=== PATIENT | female | born 1940 | race Caucasian/White ===

== ENCOUNTER → 2016-11-27 | Day surgery (SDC) | payer MEDICARE, BC ==
[~2016-11-27] MED LIST: Brimonidine 0.2% Ophth Soln 5 ML Bottle EYERT SCH; Phenylephrine 2.5% Ophth Soln 2 ML Bot EYERT SCH
[2016-11-27 10:08] VITALS: BP 133/60
== END ==
LOC: JD.SDS 08:39
PROVIDERS: ATTEND Ophthalmology
PROC: 085J3ZZ Destruction of Right Lens, Percutaneous Approach (ICD-10-PCS; principal; 2016-11-27)
DX: H26.491 Other secondary cataract, right eye (principal); H35.373 Puckering of macula, bilateral; H35.343 Macular cyst, hole, or pseudohole, bilateral; H40.002 Preglaucoma, unspecified, left eye; I10 Essential (primary) hypertension; E78.00 Pure hypercholesterolemia, unspecified; Z79.82 Long term (current) use of aspirin; Z79.899 Other long term (current) drug therapy; Z96.651 Presence of right artificial knee joint; Z98.41 Cataract extraction status, right eye; Z98.42 Cataract extraction status, left eye; Z96.1 Presence of intraocular lens; Z98.890 Other specified postprocedural states

== ENCOUNTER 2020-04-07 18:16 | Emergency (ER) | payer MEDICARE, BC ==
[2020-04-07 18:27] VITALS: BP 154/77; PULSE 79
[2020-04-07] MEDS ORDERED: Sodium Chloride 0.9% 10 ML Syringe FLUSH PRN (18:47)
--- NOTE | 2020-04-07 18:56 | EDM.PDOC ---
ED HPI GENERAL MEDICAL PROBLEM - General Chief Complaint: Chest Pain Stated Complaint: CHEST PAINS AND HIGH BLOOD PRE Time Seen by Provider: 04/07/20 18:38 Source of Information: Reports: Patient, RN Notes Reviewed History Limitations: Reports: No Limitations - History of Present Illness INITIAL COMMENTS - FREE TEXT/NARRATIVE: Patient is a 80-year-old female who presents to the ED for the evaluation of her chest discomfort. Patient notes that around 5 PM today, she developed some pressure to the center of her chest, notes that her blood pressure at that time was 156/101. She does state that she had her first COVID-19 immunization yesterday and was feeling fine up until 5 PM. She is not having any cough or shortness of breath, but states she feels slightly anxious. She does note that she has had a stent placed several years ago, but has no issues since then. She does note that cardiac issues do run in her family so she became a little bit concerned with the chest pressure. She has no fever/chills, cough/shortness of breath, nausea/vomiting/diarrhea. Primary care provider is Dr. Hartman. Middle Chest Pain Score (Numeric/FACES): 4 - Related Data Allergies Allergy/AdvReac Type Severity Reaction Status Date / Time Sulfa (Sulfonamide Allergy Rash Verified 04/07/20 18:28 Antibiotics) amoxicillin trihydrate AdvReac Nausea and Verified 04/07/20 18:28 [From Augmentin] Vomiting potassium clavulanate AdvReac Nausea and Verified 04/07/20 18:28 [From Augmentin] Vomiting Home Meds: Home Meds Cholecalciferol (Vitamin D3) [Vitamin D3] 5,000 unit PO DAILY 01/14/14 [History] OXcarbazepine [Oxcarbazepine] 150 mg PO QAM 01/14/14 [History] Simvastatin [Zocor] 20 mg PO BEDTIME 01/14/14 [History] Calcium Carbonate/Vitamin D3 [Calcium 600 + Vit D 400] 2 each PO DAILY 01/15/14 [History] Isosorbide Mononitrate [Imdur] 30 mg PO DAILY 02/06/14 [History] Nitroglycerin 0.4 mg SL ASDIRECTED 02/06/14 [History] Acetaminophen [Pharbetol] 650 mg PO Q4H PRN 04/07/20 [History] Aspirin [Adult Low Dose Aspirin EC] 81 mg PO DAILY 04/07/20 [History] LORazepam [Ativan] 0.5 mg PO DAILY PRN 04/07/20 [History] [place]-3 Fatty Acids [Maxepa] 1,000 mg PO DAILY 04/07/20 [History] Omeprazole 20 mg PO DAILY 04/07/20 [History] Timolol Hemihydrate [Betimol 0.5% Ophth Soln] 1 drop EYEBOTH BEDTIME 04/07/20 [History] Past Medical History HEENT History: Reports: Impaired Vision Cardiovascular History: Reports: CAD, High Cholesterol, Hypertension Gastrointestinal History: Reports: GERD Genitourinary History: Reports: Urinary Incontinence Other [employer] History: post menopausal atropic vaginitis, breast mass R Musculoskeletal History: Reports: Osteoarthritis Neurological History: Reports: Seizure Other Neuro History: transient cerebral edema Psychiatric History: Reports: Anxiety Dermatologic History: Reports: Cellulitis - Past Surgical History HEENT Surgical History: Reports: Cataract Surgery, Detached Retina, Oral Surgery Other HEENT Surgeries/Procedures: bilateral eye surgery, wears glasses, has partial Cardiovascular Surgical History: Reports: Coronary Artery Stent GI Surgical History: Reports: Cholecystectomy Musculoskeletal Surgical History: Reports: Knee Replacement Social & Family History - Tobacco Use Tobacco Use Status *Q: Never Tobacco User Second Hand Smoke Exposure: No - Caffeine Use Caffeine Use: Reports: None - Recreational Drug Use Recreational Drug Use: No - Living Situation & Occupation Living situation: Reports: , with Spouse Occupation: Retired ED ROS GENERAL - Review of Systems Review Of Systems: Comprehensive ROS is negative, except as noted in HPI. ED EXAM, GENERAL - Physical Exam Exam: See Below Exam Limited By: No Limitations General Appearance: Alert, WD/WN, No Apparent Distress Respiratory/Chest: No Respiratory Distress, Lungs Clear, Normal Breath Sounds, No Accessory Muscle Use, Chest Non-Tender Cardiovascular: Normal Peripheral Pulses, Regular Rate, Rhythm, No Edema, No Murmur Peripheral Pulses: 2+: Radial (L), Radial (R) GI/Abdominal: Normal Bowel Sounds, Soft, Non-Tender, No Distention, No Mass Extremities: Normal Inspection, Normal Capillary Refill Neurological: Alert, Oriented, CN II-XII Intact, Normal Cognition, No Motor/Sensory Deficits Psychiatric: Normal Affect, Normal Mood Skin Exam: Warm, Dry, Intact, Normal Color, No Rash #1 Interpretation EKG Date: 04/07/20 Time: 18:26 Rhythm: NSR Rate (Beats/Min): 78 [place]: Normal P-Wave: Present QRS: Normal ST-T: Normal QT: Normal Comparison: NA - No Prior EKG EKG Interpretation Comments: No obvious ischemia or acute ST changes noted, reviewed by myself and Dr. Portillo. Course - Vital Signs Last Recorded V/S: Last Vital Signs Temp 96.9 F 04/07/20 18:21 Pulse 79 04/07/20 18:21 Resp 16 04/07/20 18:21 BP 154/77 H 04/07/20 18:21 Pulse Ox 97 04/07/20 18:21 - Orders/Labs/Meds Orders: Active Orders 24 hr Category Date Time Status EKG 12 Lead [EKG Documentation Completion] [RC] STAT Care 04/07/20 18:19 Active Peripheral IV Care [RC] . DIRECTED Care 04/07/20 18:47 Ordered Chest 1V Frontal [CR] Stat Exams 04/07/20 18:47 Ordered Sodium Chloride 0.9% [Saline Flush] Med 04/07/20 18:47 Ordered 10 ml FLUSH ASDIRECTED PRN Peripheral IV Insertion Adult [OM.PC] Stat Oth 04/07/20 18:47 Ordered Medication Orders Sodium Chloride (Saline Flush) 10 ml FLUSH ASDIRECTED PRN PRN Reason: Keep Vein Open Last Admin: 04/07/20 19:02 Dose: 10 ml Documented by: CANDY Labs: Laboratory Tests 04/07/20 04/07/20 04/07/20 Range/Units 19:20 19:20 19:20 WBC 4.87 (3.98-10.04) K/mm3 RBC 3.91 L (3.98-5.22) M/mm3 Hgb 12.8 D (11.2-15.7) gm/dl Hct 39.5 (34.1-44.9) % MCV 101.0 H (79.4-94.8) fl MCH 32.7 H (25.6-32.2) pg MCHC 32.4 (32.2-35.5) g/dl RDW Std Deviation 43.4 (36.4-46.3) fL Plt Count 182 (182-369) K/mm3 MPV 10.4 (9.4-12.3) fl Neut % (Auto) 62.8 (34.0-71.1) % Lymph % (Auto) 23.4 (19.3-51.7) % [place] % (Auto) 10.9 (4.7-12.5) % Eos % (Auto) 2.3 (0.7-5.8) Baso % (Auto) 0.4 (0.1-1.2) % Neut # (Auto) 3.06 (1.56-6.13) K/mm3 Lymph # (Auto) 1.14 L (1.18-3.74) K/mm3 [place] # (Auto) 0.53 H (0.24-0.36) K/mm3 Eos # (Auto) 0.11 (0.04-0.36) K/mm3 Baso # (Auto) 0.02 (0.01-0.08) K/mm3 PT 10.5 (9.7-12.0) SECONDS INR 0.98 APTT 24.8 (21.7-31.4) SECONDS Sodium 141 (136-145) mEq/L Potassium 4.1 (3.5-5.1) mEq/L Chloride 105 (98-107) mEq/L Carbon Dioxide 24 (21-32) mEq/L Anion Gap 16.1 H (5-15) BUN 24 H (7-18) mg/dL Creatinine 1.4 H (0.55-1.02) mg/dL Est Cr Clr Drug Dosing 24.99 mL/min Estimated GFR (MDRD) 36 (>60) mL/min BUN/Creatinine Ratio 17.1 (14-18) Glucose 111 (83-115) mg/dL Calcium 9.4 (8.5-10.1) mg/dL Magnesium 2.1 (1.8-2.4) mg/dl Total Bilirubin 0.4 (0.2-1.0) mg/dL AST 25 (15-37) U/L ALT 35 (14-59) U/L Alkaline Phosphatase 104 (46-116) U/L Troponin I < 0.017 (0.00-0.056) ng/mL NT-Pro-B Natriuret Pep (0-450) pg/mL Total Protein 7.1 (6.4-8.2) g/dl Albumin 3.9 (3.4-5.0) g/dl Globulin 3.2 gm/dL Albumin/Globulin Ratio 1.2 (1-2) 04/07/20 Range/Units 19:20 WBC (3.98-10.04) K/mm3 RBC (3.98-5.22) M/mm3 Hgb (11.2-15.7) gm/dl Hct (34.1-44.9) % MCV (79.4-94.8) fl MCH (25.6-32.2) pg MCHC (32.2-35.5) g/dl RDW Std Deviation (36.4-46.3) fL Plt Count (182-369) K/mm3 MPV (9.4-12.3) fl Neut % (Auto) (34.0-71.1) % Lymph % (Auto) (19.3-51.7) % [place] % (Auto) (4.7-12.5) % Eos % (Auto) (0.7-5.8) Baso % (Auto) (0.1-1.2) % Neut # (Auto) (1.56-6.13) K/mm3 Lymph # (Auto) (1.18-3.74) K/mm3 [place] # (Auto) (0.24-0.36) K/mm3 Eos # (Auto) (0.04-0.36) K/mm3 Baso # (Auto) (0.01-0.08) K/mm3 PT (9.7-12.0) SECONDS INR APTT (21.7-31.4) SECONDS Sodium (136-145) mEq/L Potassium (3.5-5.1) mEq/L Chloride (98-107) mEq/L Carbon Dioxide (21-32) mEq/L Anion Gap (5-15) BUN (7-18) mg/dL Creatinine (0.55-1.02) mg/dL Est Cr Clr Drug Dosing mL/min Estimated GFR (MDRD) (>60) mL/min BUN/Creatinine Ratio (14-18) Glucose (83-115) mg/dL Calcium (8.5-10.1) mg/dL Magnesium (1.8-2.4) mg/dl Total Bilirubin (0.2-1.0) mg/dL AST (15-37) U/L ALT (14-59) U/L Alkaline Phosphatase (46-116) U/L Troponin I (0.00-0.056) ng/mL NT-Pro-B Natriuret Pep 72 (0-450) pg/mL Total Protein (6.4-8.2) g/dl Albumin (3.4-5.0) g/dl Globulin gm/dL Albumin/Globulin Ratio (1-2) Meds: Medications Generic Name Dose Route Start Last Admin Trade Name Freq PRN Reason Stop Dose Admin Sodium Chloride 10 ml 04/07/20 18:47 04/07/20 19:02 Saline Flush FLUSH 10 ml ASDIRECTED PRN Administration Keep Vein Open - Re-Assessments/Exams Free Text/Narrative Re-Assessment/Exam: 04/07/20 18:55 Patient presents to the ED for the evaluation of her central chest discomfort. Although this very well could be a reaction of her Covid vaccine we will get EKG and basic labs to rule out cardiac etiology in nature. Patient is amenable to this plan. EKG shows no acute ST abnormalities. Dr. Portillo does appreciate some T wave inversion in aVL, and T wave flattening in V2. Consider left atrial hypertrophy. 04/07/20 20:33 Patient has some slight dehydration otherwise labs are fairly unremarkable, troponin is undetectably low. I did discuss the findings with the patient, and however this likely could be due to a vaccine reaction, she is not suffering from a heart attack at today's visit. Patient was somewhat reassured with this and will follow up with her regular care provider sometime this week. Departure - Departure Time of Disposition: 20:34 Disposition: Home, Self-Care 01 Condition: Good Clinical Impression: Adverse effect of COVID-19 vaccine, Atypical chest pain Instructions: Nonspecific Chest Pain, Adult, [id number] Referrals: Cecilia Nguyen MD [Primary Care Provider] - Forms: ED Department Discharge Additional Instructions: You were evaluated in the ER today for your chest discomfort. EKG and laboratory evaluation taken at today's visit demonstrate no focal abnormalities, you are not suffering from a heart attack at today's visit. It is likely, that this could be an adverse effect of the Covid vaccine that you received 1 day prior. I would recommend that you check your blood pressure twice daily, in a calm restful state, and record these numbers and discuss them with your primary care provider for further management. Please return to the ER at any time if symptoms change or worsen. Sepsis Event Note (ED) - Evaluation Sepsis Screening Result: No Definite Risk - Focused Exam Vital Signs: Vital Signs Temp Pulse Resp BP Pulse Ox 04/07/20 18:21 96.9 F 79 16 154/77 H 97 - My Orders Last 24 Hours: My Active Orders 04/07/20 18:19 EKG 12 Lead [EKG Documentation Completion] [RC] STAT 04/07/20 18:47 Peripheral IV Care [RC] . DIRECTED Chest 1V Frontal [CR] Stat Sodium Chloride 0.9% [Saline Flush] 10 ml FLUSH ASDIRECTED PRN Peripheral IV Insertion Adult [OM.PC] Stat - Assessment/Plan Last 24 Hours: My Active Orders 04/07/20 18:19 EKG 12 Lead [EKG Documentation Completion] [RC] STAT 04/07/20 18:47 Peripheral IV Care [RC] . DIRECTED Chest 1V Frontal [CR] Stat Sodium Chloride 0.9% [Saline Flush] 10 ml FLUSH ASDIRECTED PRN Peripheral IV Insertion Adult [OM.PC] Stat
--- NOTE | 2020-04-08 12:47 | CR ---
Chest: Portable view of the chest was obtained. Comparison: Previous chest x-ray of 09/10/18. Heart is felt to be slightly enlarged. Tortuous thoracic aorta is noted. Lungs are clear with no acute parenchymal change. Bony structures are grossly intact. Impression: 1. Heart mildly enlarged. Nothing acute is appreciated on portable chest x-ray. Diagnostic code #2
== END 2020-04-07 20:50 | disposition home or self-care (01) ==
LOC: JD.ED 18:16
DX: R07.89 Other chest pain (principal); T88.1XXA Other complications following immunization, not elsewhere classified, initial encounter; I10 Essential (primary) hypertension; E78.00 Pure hypercholesterolemia, unspecified; I25.10 Atherosclerotic heart disease of native coronary artery without angina pectoris; K21.9 Gastro-esophageal reflux disease without esophagitis; Z88.2 Allergy status to sulfonamides; Z88.1 Allergy status to other antibiotic agents; Z79.82 Long term (current) use of aspirin; Z79.899 Other long term (current) drug therapy
CPT/HCPCS: 36415; 71045; 71045-26; 80053; 83735; 83880; 84484; 85025; 85610; 85730; 93005; 93010; 99284; 99285-25

== ENCOUNTER 2021-05-22 08:31 | Emergency (ER) | payer MEDICARE, BC ==
[2021-05-22 08:45] VITALS: BP 138/81; PULSE 78
[2021-05-22] MEDS ORDERED: Sodium Chloride 0.9% 10 ML Syringe FLUSH PRN (09:01)
[2021-05-22] MEDS ORDERED: Dicyclomine 10 MG Cap PO ONE (09:24)
[2021-05-22] MEDS ORDERED: Metoclopramide 10 MG/2 ML SDV IVPUSH ONE (09:25)
[2021-05-22] MEDS ORDERED: HYDROmorphone 0.5 MG/0.5 ML Syringe IVPUSH ONE (09:25)
== END 2021-05-22 15:00 | disposition home or self-care (01) ==
LOC: JD.ED 08:31
DX: N39.0 Urinary tract infection, site not specified (principal); K21.9 Gastro-esophageal reflux disease without esophagitis; Z88.2 Allergy status to sulfonamides; Z88.0 Allergy status to penicillin; Z79.82 Long term (current) use of aspirin; Z79.899 Other long term (current) drug therapy
CPT/HCPCS: 36415; 71045; 80053; 81001; 83690; 83735; 84484; 85025; 85379; 85610; 86140; 87086; 87088; 87186; 93005; 96374; 96375; 99285; A9270; J1170; J2765; 93010; J3490

== ENCOUNTER 2022-08-21 18:54 | Emergency (ER) | payer MEDICARE, BC ==
[2022-08-21 20:32] LABS: BASOPHILS ABSOLUTE AUTO 0.02 K/mm3 (0.01-0.08); BASOPHILS PERCENT AUTO 0.4 % (0.1-1.2); EOSINOPHILS ABSOLUTE AUTO 0.17 K/mm3 (0.04-0.36); EOSINOPHILS PERCENT AUTO 3.2 (0.7-5.8); HEMATOCRIT 38.6 % (34.1-44.9); HEMOGLOBIN 12.7 gm/dl (11.2-15.7); LYMPHOCYTES ABSOLUTE AUTO 1.24 K/mm3 (1.18-3.74); LYMPHOCYTES PERCENT AUTO 23.4 % (19.3-51.7); MEAN CORPUSCULAR HGB CONC 32.9 g/dl (32.2-35.5); MEAN CORPUSCULAR VOLUME 100.3 fl (79.4-94.8); MEAN PLATELET VOLUME 10.3 fl (9.4-12.3); MONOCYTES ABSOLUTE AUTO 0.55 K/mm3 (0.24-0.36); MONOCYTES PERCENT AUTO 10.4 % (4.7-12.5); NEUTROPHILS ABSOLUTE AUTO 3.33 K/mm3 (1.56-6.13); NEUTROPHILS PERCENT AUTO 62.6 % (34.0-71.1); PLATELET COUNT,PLT 182 K/mm3 (182-369); RED BLOOD CELL COUNT 3.85 M/mm3 (3.98-5.22); WHITE BLOOD CELL COUNT,WBC 5.31 K/mm3 (3.98-10.04)
[2022-08-21 21:22] LABS: A/G RATIO 1.2 (1-2); ALBUMIN 3.7 g/dl (3.4-5.0); ANION GAP 15.2 (5-15); BILIRUBIN TOTAL 0.4 mg/dL (0.2-1.0); BUN/CREATININE RATIO 18.3 (14-18); CALCIUM 8.9 mg/dL (8.5-10.1); CREATININE 1.2 mg/dL (0.55-1.02); EST CRCL DRUG DOSING (CG) 28.21 mL/min; MAGNESIUM 1.9 mg/dL (1.8-2.4); POTASSIUM,K 4.2 mEq/L (3.5-5.1); PROTEIN TOTAL,TP 6.9 g/dl (6.4-8.2); TSH 1.314 uIU/mL (0.358-3.74)
[2022-08-21 21:24] LABS: APPEARANCE,URINE CLEAR (Clear); BILIRUBIN,URINE NEGATIVE (Negative); COLOR,URINE YELLOW (Yellow); GLUCOSE,URINE NEGATIVE (Negative); KETONES,URINE NEGATIVE (Negative); LEUKOCYTE ESTERASE,URINE 2+ (Negative); NITRITE,URINE POSITIVE (Negative); OCCULT BLOOD,URINE NEGATIVE (Negative); PROTEIN,URINE NEGATIVE (Negative); UROBILINOGEN,URINE 0.2 (0.2-1.0)
[2022-08-21 21:32] LABS: BARBITURATE SCREEN,URINE NEGATIVE (CUTOFF=200); BENZODIAZEPINES SCREEN,URINE NEGATIVE (CUTOFF=150); BUPRENORPHINE SCREEN,URINE NEGATIVE (CUTOFF=10); METHADONE SCREEN, URINE NEGATIVE (CUTOFF=200); METHAMPHETAMINES SCREEN, URINE NEGATIVE (CUTOFF=500); OXYCODONE SCREEN,URINE NEGATIVE (CUT0FF=100); PROPOXYPHENE SCREEN,URINE NEGATIVE (CUTOFF=300); THC SCREEN,URINE 20 NG/ML NEGATIVE (CUTOFF=50)
[2022-08-21 21:33] LABS: AMPHETAMINES SCREEN, URINE NEGATIVE (CUTOFF=500)
[2022-08-21 21:38] LABS: RBC,URINE 0-5 /hpf (0-5)
[2022-08-21 21:39] LABS: BACTERIA,URINE MANY /hpf (FEW); MUCUS,URINE NOT SEEN /hpf (FEW)
[2022-08-21] MEDS ORDERED: Cephalexin 500 MG Cap PO ONE (23:17)
[2022-08-21 23:58] VITALS: BP 143/72; PULSE 63
== END 2022-08-21 23:58 | disposition home or self-care (01) ==
LOC: JD.ED 18:54
DX: R42 Dizziness and giddiness (principal); N30.01 Acute cystitis with hematuria; I25.10 Atherosclerotic heart disease of native coronary artery without angina pectoris; E78.00 Pure hypercholesterolemia, unspecified; I10 Essential (primary) hypertension; K21.9 Gastro-esophageal reflux disease without esophagitis; M19.90 Unspecified osteoarthritis, unspecified site; Z79.899 Other long term (current) drug therapy; Z79.82 Long term (current) use of aspirin; Z88.0 Allergy status to penicillin; Z88.2 Allergy status to sulfonamides
CPT/HCPCS: 36415; 70450; 80053; 80306; 81001; 83735; 83970; 84443; 84484; 85025; 93005; 99284; A9270; 93010; 99283

== ENCOUNTER 2024-01-18 08:09 | Emergency (ER) | payer MEDICARE, BC ==
[2024-01-18] MEDS ORDERED: Sodium Chloride 0.9% 10 ML Syringe FLUSH PRN ×2 (09:33→09:39)
[2024-01-18 10:19] LABS: BASOPHILS PERCENT AUTO 0.9 % (0.0-1.0); EOSINOPHILS ABSOLUTE AUTO 0.2 K/mm3 (0.0-0.4); EOSINOPHILS PERCENT AUTO 3.9 % (0.0-6.0); HEMATOCRIT 40.8 % (37.0-47.0); IMMATURE GRAN ABSOLUTE AUTO 0.01 K/mm3 (0.00-0.05); IMMATURE GRAN PERCENT AUTO 0.2 % (0.0-0.4); LYMPHOCYTES ABSOLUTE AUTO 1.6 K/mm3 (1.0-4.8); LYMPHOCYTES PERCENT AUTO 34.9 % (24.0-44.0); MEAN CORPUSCULAR HEMOGLOBIN 32.7 pg (28.0-32.0); MEAN CORPUSCULAR HGB CONC 31.9 g/dl (32.0-36.0); MEAN CORPUSCULAR VOLUME 102.8 fl (83.0-99.0); MEAN PLATELET VOLUME 10.4 fl (9.4-12.3); MONOCYTES ABSOLUTE AUTO 0.4 K/mm3 (0.0-0.8); MONOCYTES PERCENT AUTO 8.7 % (0.0-8.0); NEUTROPHILS ABSOLUTE AUTO 2.4 K/mm3 (1.8-7.7); NEUTROPHILS PERCENT AUTO 51.4 % (41.0-71.0); PLATELET COUNT,PLT 178 K/mm3 (150-400); RED BLOOD CELL COUNT 3.97 M/mm3 (4.10-5.30); WHITE BLOOD CELL COUNT,WBC 4.61 K/mm3 (3.9-11.3)
[2024-01-18 11:03] LABS: INR 1.05; PROTHROMBIN TIME 11.1 SECONDS (9.7-12.0)
[2024-01-18 11:05] LABS: APPEARANCE,URINE SLT CLOUDY (Clear); BILIRUBIN,URINE NEGATIVE (Negative); COLOR,URINE YELLOW (Yellow); GLUCOSE,URINE NEGATIVE (Negative); KETONES,URINE NEGATIVE (Negative); LEUKOCYTE ESTERASE,URINE TRACE (Negative); NITRITE,URINE POSITIVE (Negative); OCCULT BLOOD,URINE NEGATIVE (Negative); PH,URINE 6.5 (5.0-8.0); PROTEIN,URINE NEGATIVE (Negative); UROBILINOGEN,URINE 0.2 (0.2-1.0)
[2024-01-18 11:11] LABS: A/G RATIO 1.2 (1-2); ALANINE AMINOTRANSFERASE,ALT 38 U/L (14-59); ALBUMIN 3.8 g/dl (3.4-5.0); ALKALINE PHOSPHATASE 91 U/L (46-116); ANION GAP 16.2 (5-15); ASPARTATE AMNIOTRANSFERASE,AST 30 U/L (15-37); BILIRUBIN TOTAL 0.7 mg/dL (0.2-1.0); BLOOD UREA NITROGEN,BUN 20 mg/dL (7-18); CARBON DIOXIDE,CO2 20 mEq/L (21-32); CHLORIDE,CL 104 mEq/L (98-107); ESTIMATED GFR 57 mL/min (>60); GLUCOSE RANDOM 98 mg/dL (70-99); POTASSIUM,K 4.2 mEq/L (3.5-5.1); PROTEIN TOTAL,TP 6.9 g/dl (6.4-8.2); SODIUM,NA 136 mEq/L (136-145); TROPONIN I HIGH SENSITIVITY 9 pg/mL (<=51)
[2024-01-18 11:40] LABS: EPITHELIAL CELLS,URINE 0-5 /hpf (0-5); RBC,URINE 0-5 /hpf (0-5); WBC,URINE 0-5 /hpf (0-5)
[2024-01-18 11:41] LABS: BACTERIA,URINE MODERATE /hpf (FEW); MUCUS,URINE FEW /hpf (FEW)
[2024-01-18] MEDS: cefTRIAXone 500 MG Vial IVPUSH ONE (13:57)
[2024-01-18 15:03] VITALS: PULSE 53
[2024-01-18 15:05] VITALS: BP 164/55
== END 2024-01-18 14:22 | disposition home or self-care (01) ==
LOC: JD.ED 08:09
DX: N30.01 Acute cystitis with hematuria (principal); R41.0 Disorientation, unspecified; E03.9 Hypothyroidism, unspecified; K21.9 Gastro-esophageal reflux disease without esophagitis; Z95.5 Presence of coronary angioplasty implant and graft; Z88.0 Allergy status to penicillin; Z88.2 Allergy status to sulfonamides; Z88.8 Allergy status to other drugs, medicaments and biological substances
CPT/HCPCS: 36415; 70450; 80053; 81001; 84484; 85025; 85610; 85730; 87086; 87088; 87186; 93005; 96374; 99284; J0696; 93010

== ENCOUNTER 2024-06-08 12:09 | Emergency (ER) | payer MEDICARE, BC ==
[2024-06-08 13:35] LABS: BASOPHILS PERCENT AUTO 0.5 % (0.0-1.0); EOSINOPHILS ABSOLUTE AUTO 0.2 K/mm3 (0.0-0.4); EOSINOPHILS PERCENT AUTO 2.1 % (0.0-6.0); HEMATOCRIT 38.3 % (37.0-47.0); HEMOGLOBIN 12.7 gm/dl (12.0-16.0); IMMATURE GRAN ABSOLUTE AUTO 0.03 K/mm3 (0.00-0.05); IMMATURE GRAN PERCENT AUTO 0.4 % (0.0-0.4); LYMPHOCYTES ABSOLUTE AUTO 1.2 K/mm3 (1.0-4.8); LYMPHOCYTES PERCENT AUTO 15.9 % (24.0-44.0); MEAN CORPUSCULAR HEMOGLOBIN 32.2 pg (28.0-32.0); MEAN CORPUSCULAR HGB CONC 33.2 g/dl (32.0-36.0); MEAN PLATELET VOLUME 10.1 fl (9.4-12.3); MONOCYTES ABSOLUTE AUTO 0.7 K/mm3 (0.0-0.8); MONOCYTES PERCENT AUTO 8.5 % (0.0-8.0); NEUTROPHILS ABSOLUTE AUTO 5.5 K/mm3 (1.8-7.7); NEUTROPHILS PERCENT AUTO 72.6 % (41.0-71.0); PLATELET COUNT,PLT 210 K/mm3 (150-400); RED BLOOD CELL COUNT 3.95 M/mm3 (4.10-5.30); WHITE BLOOD CELL COUNT,WBC 7.62 K/mm3 (3.9-11.3)
[2024-06-08 13:39] LABS: APPEARANCE,URINE SLT CLOUDY (Clear); BILIRUBIN,URINE NEGATIVE (Negative); COLOR,URINE YELLOW (Yellow); GLUCOSE,URINE NEGATIVE (Negative); KETONES,URINE NEGATIVE (Negative); LEUKOCYTE ESTERASE,URINE 1+ (Negative); NITRITE,URINE POSITIVE (Negative); OCCULT BLOOD,URINE NEGATIVE (Negative); PH,URINE 6.5 (5.0-8.0); PROTEIN,URINE NEGATIVE (Negative)
[2024-06-08 13:48] LABS: LACTIC ACID 0.9 mmol/L (0.4-2.0)
[2024-06-08 13:55] LABS: ALBUMIN 3.5 g/dl (3.4-5.0); BILIRUBIN TOTAL 0.7 mg/dL (0.2-1.0); BUN/CREATININE RATIO 13.6 (14-18); C-REACTIVE PROTEIN 4.08 mg/dL (<0.30); CALCIUM 8.9 mg/dL (8.5-10.1); CREATININE 1.1 mg/dL (0.55-1.02); EST CRCL DRUG DOSING (CG) 30.47 mL/min; MAGNESIUM 1.6 mg/dL (1.8-2.4); PROTEIN TOTAL,TP 7.1 g/dl (6.4-8.2)
[2024-06-08 13:57] LABS: BACTERIA,URINE MODERATE /hpf (FEW); MUCUS,URINE FEW /hpf (FEW); RBC,URINE 0-5 /hpf (0-5); WBC,URINE 0-5 /hpf (0-5)
[2024-06-08] MEDS: Magnesium Oxide 400 MG Tab PO ONE (14:54)
[2024-06-08] MEDS: LORazepam 1 MG Tab PO ONE (14:54)
[2024-06-08 16:59] VITALS: BP 122/79; PULSE 80
== END 2024-06-08 16:50 | disposition home or self-care (01) ==
LOC: JD.ED 12:09
DX: R41.0 Disorientation, unspecified (principal); N39.0 Urinary tract infection, site not specified; K21.9 Gastro-esophageal reflux disease without esophagitis; Z88.2 Allergy status to sulfonamides; Z88.1 Allergy status to other antibiotic agents; Z88.8 Allergy status to other drugs, medicaments and biological substances; Z79.82 Long term (current) use of aspirin; Z79.899 Other long term (current) drug therapy; Z90.49 Acquired absence of other specified parts of digestive tract
CPT/HCPCS: 36415; 70551; 71045; 80053; 81001; 83605; 83735; 84484; 85025; 86140; 87086; 93005; 99285; A9270; 93010; 99283